=== PATIENT | female | born 2000 | race Caucasian/White ===

== ENCOUNTER 2018-08-16 13:41 | Emergency (ER) | payer OTHER ==
[~2018-08-16] VITALS: Ht 162.6 cm; Wt 90.7 kg
[2018-08-16 13:58] LABS: Source, Urine Clean Catch
[2018-08-16 14:03] LABS: Bilirubin, Urine Neg (Neg); Blood, Urine 1+ (Neg); Glucose Qualitative, Urine Neg (Neg); Ketones, Urine Neg (Neg); Leukocyte Esterase, Urine 2+ (Neg); Nitrite, Urine Neg (Neg); Protein, Urine 1+ (Neg); Urobilinogen, Urine NORM (Normal)
[2018-08-16 14:20] LABS: BASOPHILS ABSOLUTE AUTO 0.02 K/mm3 (0.00-0.23); BASOPHILS PERCENT AUTO 0 % (0-2); EOSINOPHILS ABSOLUTE AUTO 0.02 K/mm3 (0.00-0.68); EOSINOPHILS PERCENT AUTO 0 % (0-6); Hemoglobin 11.5 g/dL (11.5-16.0); IMMATURE GRAN ABSOLUTE AUTO 0.03 K/mm3 (0.00-0.10); IMMATURE GRAN PERCENT AUTO 0 % (0-1); LYMPHOCYTES ABSOLUTE AUTO 1.49 K/mm3 (0.84-5.20); LYMPHOCYTES PERCENT AUTO 18 % (21-46); MONOCYTES ABSOLUTE AUTO 0.76 K/mm3 (0.16-1.47); MONOCYTES PERCENT AUTO 9 % (4-13); Mean Corpuscular HGB 30.4 pg (26.0-34.0); Mean Corpuscular HGB Conc 33.8 g/dL (31.5-36.5); Mean Corpuscular Volume 90 fL (80-100); Mean Platelet Volume 9.8 fL (9.1-12.4); NEUTROPHILS ABSOLUTE AUTO 6.16 K/mm3 (1.96-9.15); NEUTROPHILS PERCENT AUTO 73 % (41-73); Platelet Count 214 K/mm3 (150-400); RDW Coefficient Variation 12.6 % (11.7-14.2); RDW Standard Deviation 41.5 fL (35.1-46.3); Red Blood Cell Count 3.78 M/mm3 (3.80-5.20); White Blood Cell Count 8.48 K/mm3 (4.00-11.30)
[2018-08-16 14:45] LABS: Appearance, Urine Hazy (Clear); Color, Urine Yellow (P-Yellow)
[2018-08-16 14:48] LABS: Bacteria Many /hpf; Squamous Epithelial Cells Many /hpf (Few)
[2018-08-16 14:50] LABS: Alanine Aminotransfer (ALT/SGP 18 U/L (12-78); Albumin, Blood 3.3 g/dL (3.4-5.0); Albumin/Globulin Ratio 0.9 (0.8-1.8); Alk Phos 54 U/L (45-116); Anion Gap 8 mmol/L (6-16); Aspartate Aminotrans (AST/SGOT 15 U/L (12-37); Bilirubin, Total 0.3 mg/dL (0.1-1.0); Blood Urea Nitrogen 5 mg/dL (8-21); Bun/Creatinine Ratio 11.6 (12.0-20.0); CO2, Blood 21 mmol/L (21-32); Calcium, Blood 8.9 mg/dL (8.5-10.1); Chloride, Blood 108 mmol/L (98-108); Creatinine, Blood 0.43 mg/dL (0.40-1.00); Globulin, Blood 3.6 g/dL (2.2-4.0); Glomerular Filtration Rate >60 (60-); Glucose, Blood 83 mg/dL (70-99); Potassium, Blood 3.9 mmol/L (3.5-5.5); Sodium, Blood 137 mmol/L (136-145); Total Protein, Blood 6.9 g/dL (6.4-8.2)
[2018-08-16 14:51] LABS: Red Blood Cells, Urine 0-2 /hpf (0-2); Transitional Epithelial Cells Few /hpf (0-Rare)
[2018-08-16 14:53] LABS: White Blood Cells, Urine 0-2 /hpf (0-5)
[2018-08-16] MEDS ORDERED: ONDA4ODT MM (14:58)
[2018-08-16] MEDS ORDERED: CEFP200 PO (16:04)
== END 2018-08-16 16:13 | disposition home or self-care (01) ==
LOC: ER 13:41
PROVIDERS: Physician Assistant
DX: O23.02 Infections of kidney in pregnancy, second trimester (principal); Z3A.17 17 weeks gestation of pregnancy
CPT/HCPCS: 36415; 76770; 76815; 80053; 81001; 85025; 86900; 86901; 87086; 99284-25; A9270-GY

== ENCOUNTER → 2018-11-24 | Outpatient (CLI) | payer OTHER ==
[~2018-11-24] MED LIST: CEFP200 PO; ONDA4ODT MM
[2018-11-25 10:00] LABS: Candida species (DNA Probe) Positive (NEGATIVE); G. vaginalis (DNA Probe) Negative (NEGATIVE); T. vaginalis (DNA Probe) Negative (NEGATIVE)
== END | disposition home or self-care (01) ==
LOC: LAB 18:15 → LAB SHORT 18:15
PROVIDERS: Physician Assistant
DX: N89.9 Noninflammatory disorder of vagina, unspecified (principal)
CPT/HCPCS: 87070; 87205; 87480; 87510; 87660

== ENCOUNTER → 2020-11-22 | Outpatient (CLI) | payer OTHER | LOC: LAB SHORT 11:45 → LAB 11:45 | PROVIDERS: Obstetrics & Gynecology | DX: Z01.419 Encounter for gynecological examination (general) (routine) without abnormal findings (principal) | CPT/HCPCS: G0123 ==

== ENCOUNTER 2021-06-18 10:01 | Day surgery (SDC) | payer OTHER ==
[~2021-06-18] VITALS: Ht 162.6 cm; Wt 90.4 kg
--- NOTE | 2021-06-18 11:12 | NUR ---
History, Chart, Medications and Allergies reviewed before start of procedure. Patient States Post-Procedure ride home has been arranged. Patient confirms NPO status and agrees with scheduled surgery.
--- NOTE | 2021-06-18 11:40 | NUR ---
ASSUMED CARE AT 1140. REPORT FROM RADHA GABRIEL RN.
--- NOTE | 2021-06-18 16:36 | NUR ---
THIS RN RECENTLY GIVEN REPORT. PT RECENTLY BEEN GIVEN PAIN PILL SHE WAS LESS NAUSEOUS THAN SHE WAS PREVIOUSLY. PT REPORTED TO HAVE NAUSEA MEDICATION. PT GIVEN SALTINE CRACKERS WITH PAIN PILL. PT TOLERATING SIPS OF LIQUID. PT'S MOM HERE. PT ASSISTED WITH ADL'S PRN.
--- NOTE | 2021-06-18 17:10 | NUR ---
Patient up to Ambulate independently. Gait steady. Discharge instructions reviewed with patient. Patient verbalizes understanding. Copy given to patient to take home, WELL FAMILY. Patient States Post-Procedure ride home has been arranged. Discharged via wheelchair to private car for ride home. PT REPORTS PAIN TOLERABLE AND DENIES NAUSEA. PT REPORTED VOIDING RECENTLY.
== END 2021-06-18 17:10 | disposition home or self-care (01) ==
LOC: ORSCMMR 10:01 → ORD 12:00 → ORSCMMR 17:10
PROVIDERS: Obstetrics & Gynecology
PROC: 0UB04ZZ Excision of Right Ovary, Percutaneous Endoscopic Approach (ICD-10-PCS; principal; 2021-06-18 12:00)
DX: D27.0 Benign neoplasm of right ovary (principal); N80.3 Endometriosis of pelvic peritoneum; E66.9 Obesity, unspecified; Z68.34 Body mass index [BMI] 34.0-34.9, adult
CPT/HCPCS: 88305; A9270; J1100; J1170; J1885; J2250; J2405; J2550; J2704; J3010; J7120

== ENCOUNTER → 2021-11-21 | Outpatient (CLI) | payer OTHER ==
[2021-11-21 12:11] LABS: Source, Urine Clean Catch
[2021-11-21 13:12] LABS: Appearance, Urine Clear (Clear); Bilirubin, Urine Neg (Neg); Blood, Urine Neg (Neg); Color, Urine Yellow (P-Yellow); Glucose Qualitative, Urine Neg (Neg); Ketones, Urine 2+ (Neg); Leukocyte Esterase, Urine Neg (Neg); Nitrite, Urine Neg (Neg); Protein, Urine 1+ (Neg); Specific Gravity, Urine 1.015 (1.003-1.022); Urobilinogen, Urine NORM (Normal)
== END | disposition home or self-care (01) ==
LOC: LAB 12:09 → LAB SHORT 12:09
PROVIDERS: Advanced Practice Midwife
DX: R30.9 Painful micturition, unspecified (principal)
CPT/HCPCS: 87086

== ENCOUNTER → 2021-11-29 | Outpatient (CLI) | payer OTHER ==
[2021-11-29 13:38] LABS: Source, Urine Voided
[2021-11-29 15:29] LABS: Mucus Mod (0-Heavy)
[2021-11-29 15:31] LABS: Bacteria Mod /hpf; Squamous Epithelial Cells Few /hpf (Few)
[2021-11-29 15:46] LABS: U Amphetamine Screen Not Detected; U Barbituate Screen Not Detected; U Benzodiazapine Screen Not Detected; U Buprenorphine Screen Not Detected; U Cannabinoids Screen Not Detected; U Cocaine Screen Not Detected; U Methadone Screen Not Detected; U Methamphetamine Screen Not Detected; U Opiates Screen Not Detected; U Oxycodone Screen Not Detected; U Phencyclidine Screen Not Detected; U Propoxyphene Screen Not Detected
== END | disposition home or self-care (01) ==
LOC: LAB SHORT 11:06 → LAB 11:06
PROVIDERS: Obstetrics & Gynecology
DX: Z34.81 Encounter for supervision of other normal pregnancy, first trimester (principal)
CPT/HCPCS: 81015; 87086

== ENCOUNTER 2022-01-02 09:32 | Day surgery (SDC) | payer OTHER ==
[~2022-01-02] VITALS: Ht 162.6 cm; Wt 87.6 kg
--- NOTE | 2022-01-02 10:51 | NUR ---
Ambulatory in [facility] warming gown applied. History, Chart, Medications and Allergies reviewed before start of procedure.Lungs clear T/O to Auscultation. Patient confirms NPO status and agrees with scheduled surgery. Pre-Op teaching done. Pt verbalizes understanding. Patient States Post-Procedure ride home has been arranged.
--- NOTE | 2022-01-02 11:06 | NUR ---
01/02/22 1106 Christi Fink ANTIBIOTIC GIVEN IN PREOP
[2022-01-02 12:18] LABS: Hematocrit 28.7 % (33.0-51.0); Hemoglobin 9.8 g/dL (11.5-16.0); Mean Corpuscular HGB 30.2 pg (26.0-34.0); Mean Corpuscular HGB Conc 34.1 g/dL (31.5-36.5); Mean Corpuscular Volume 88 fL (80-100); Platelet Count 186 K/mm3 (150-400); RDW Coefficient Variation 12.3 % (11.7-14.2); RDW Standard Deviation 40.4 fL (35.1-46.3); Red Blood Cell Count 3.25 M/mm3 (3.80-5.20); White Blood Cell Count 6.08 K/mm3 (4.00-11.30)
--- NOTE | 2022-01-02 12:33 | NUR ---
ARRIVED FROM PACU COMPLAINTS OF NAUSEA NO PAIN. GIVEN RX AT THIS TIME BROUGHT TO BEDSIDE.
--- NOTE | 2022-01-02 13:03 | NUR ---
CALLED WHO RETURNED CALL NEW ORDERS GIVE A THIRD LR AND CYTOTEC 200MCG. PATIENT HAD BEEN STANDING WITH NURSE ATTEMPTING TO PUT AD AND UNDERWEAR ON AND ASSISTED BACK TO BED AFTER PATIENT LOC CHANGED. VSS STABLE BUT WITH LOWER BP WHEN THIS OCCURED.
--- NOTE | 2022-01-02 13:29 | NUR ---
DR MCLEOD HERE AROUND 1320 TO ASSESS PATIENT AND PAD. PATIENT STATES FEELING BETTER AT THIS TIME CALL FROM SURGERY FLOOR DEPARTMENT SECRETARY AND GIVEN ROOM 226 TO PATIENT AND TO CALL NURSE IN 10-15 MINUTES
--- NOTE | 2022-01-02 14:05 | NUR ---
FINAL PAD CHECK AND CHANGED BY VIVEK STEPHENS AND REPORT GIVEN TO ANSHUL DOYLETILE DESIGNER FLOOR ON PHONE AND IN PERSON WHEN TWO RNS TOOK PATIENT OT FLOOR AND DID A FULLA SSIST TO NEW BED.
--- NOTE | 2022-01-02 14:14 | NUR ---
POST OP: REPORT RECEIVED FROM BRA[place], TAX COLLECTOR. PT TO UNIT AT ABOUT 1410. PT IS A/O, VSS. SMALL AMT OF VAGINAL BLEED, FLUIDS RUNNING. PT REPORTS "SLIGHTLY DIZZY". ORIENTED TO ROOM, CALL LIGHT IN REACH. FAMILY AT BEDSIDE.
[2022-01-02 16:03] LABS: BASOPHILS ABSOLUTE AUTO 0.02 K/mm3 (0.00-0.23); BASOPHILS PERCENT AUTO 0 % (0-2); EOSINOPHILS PERCENT AUTO 0 % (0-6); Hematocrit 26.6 % (33.0-51.0); Hemoglobin 8.9 g/dL (11.5-16.0); IMMATURE GRAN ABSOLUTE AUTO 0.07 K/mm3 (0.00-0.10); IMMATURE GRAN PERCENT AUTO 1 % (0-1); LYMPHOCYTES ABSOLUTE AUTO 0.61 K/mm3 (0.84-5.20); LYMPHOCYTES PERCENT AUTO 5 % (21-46); MONOCYTES ABSOLUTE AUTO 0.14 K/mm3 (0.16-1.47); MONOCYTES PERCENT AUTO 1 % (4-13); Mean Corpuscular HGB 29.5 pg (26.0-34.0); Mean Corpuscular HGB Conc 33.5 g/dL (31.5-36.5); Mean Corpuscular Volume 88 fL (80-100); Mean Platelet Volume 10.3 fL (9.1-12.4); NEUTROPHILS ABSOLUTE AUTO 11.88 K/mm3 (1.96-9.15); NEUTROPHILS PERCENT AUTO 93 % (41-73); Platelet Count 203 K/mm3 (150-400); RDW Coefficient Variation 12.4 % (11.7-14.2); RDW Standard Deviation 39.5 fL (35.1-46.3); Red Blood Cell Count 3.02 M/mm3 (3.80-5.20); White Blood Cell Count 12.72 K/mm3 (4.00-11.30)
--- NOTE | 2022-01-02 19:35 | NUR ---
SUMMARY: PT IS POD0 D&C. A/O, VSS. PT VAGINAL BLEEDING HAS DECREASED SINCE ADMISSION. PT HAS BEEN ABLE TO VOID, IS EATING AND DRINKING. SOME NAUSEA AND NO EMESIS. PT PAIN SEEMS TO BE WELL MANAGED WITH TYLENOL, PT REPORTS MILD CRAMPING. WHEN PT STANDS TO USE RESTROOM, SHE CONTINUES TO REPORT MILD DIZZINESS AND REPORTS SOB AND THAT HER HEART IS BOUNDING. PT LAYS BACK DOWN AND FEELS BETTER, VSS. DR. MCLEOD MADE AWARE OF THIS AND A 500ML OF NS FLUID BOLUS GIVEN. PT STILL COMPLAINING OF DIZZINESS 1 HR AFTER BOLUS WHEN UP TO BATHROOM. DR. MCLEOD CALLED AGAIN, NO NEW ORDERS AT THIS TIME. NOC VIVEK HALE IS AWARE. BEDSIDE REPORT COMPLETED.
--- NOTE | 2022-01-02 20:29 | NUR ---
PT C/O TINGLING TO CHEST AND FINGERS.PT RESTING IN BED.VS STABLE WITH LITTLE CHANGE OTHER THAN HEART RATE TRENDING UP TO 104 FROM 80'S.DENIES VISION CHANGES.LIGHT VAG FLOW.I CALLED DR Enid MCLEOD TO ADVISE OF ABOVE WITH NO NEW ORDERS RECEIVED.DR LUONG TO REASSURE PT MOST LIKLEY SECONDARY TO SURGICAL BLOOD LOSS. DR LUONG SHE WILL DECIDE REGARDING ANY FUTHER BLOOD DRAWS AND WILL PUT ORDERS IN IF SHE WANTS ANY FURTHER BLOOD DRAWS.
[2022-01-03 04:53] LABS: Hematocrit 21.2 % (33.0-51.0); Hemoglobin 7.2 g/dL (11.5-16.0); Mean Corpuscular HGB 29.9 pg (26.0-34.0); Mean Corpuscular Volume 88 fL (80-100); Mean Platelet Volume 10.3 fL (9.1-12.4); Platelet Count 182 K/mm3 (150-400); RDW Coefficient Variation 12.3 % (11.7-14.2); RDW Standard Deviation 39.7 fL (35.1-46.3); Red Blood Cell Count 2.41 M/mm3 (3.80-5.20); White Blood Cell Count 8.25 K/mm3 (4.00-11.30)
--- NOTE | 2022-01-03 05:08 | NUR ---
PT UP IN ROOM WITH THIS AM.DIZZYNESS MOSTLY RESOLVED,BUT REPORTS OCC DIZZYNESS STILL.LIGHT VAG DRNG.PAIN MEDS HAVE BEEN EFFECTIVE.
--- NOTE | 2022-01-03 05:39 | NUR ---
SUMMARY PHONE CALL TO DR Enid MCLEOD TO DISCUSS H/H 7.2.2 STATED SHE DOES NOT EXPECT PT TO NEED TRANSFUSION. STATED SHE PUT IN ORDER FOR IV IRON THIS AM. PLANS TO SEE PT AFTER AM MEETING SHE HAS SCHEDULED.
--- NOTE | 2022-01-03 09:00 | NUR ---
IRON TRANFUSION PT DECLINED IRON TRANSFUSION AND VERBALIZED THAT SHE WANTED TO GO HOME. DR. MCLEOD NOTIFIED AND STATED OK FOR PT TO DISCHARGE HOME.
[2022-01-03] MEDS ORDERED: Acetaminophen650 M1 PO ×2 (09:34)
[2022-01-03] MEDS ORDERED: OXAYDO5 M2 PO ×2 (09:35)
[2022-01-03] MEDS ORDERED: IBUP800 PO ×2 (09:36)
--- NOTE | 2022-01-03 10:00 | NUR ---
PT CONCERNS ABOUT GOING HOME PT AND HER EXPRESSED CONCERNS ABOUT PT DISCHARGING HOME. PT REPORTED THAT SHE HAD EXTREME DIZZINESS UPON STANDING AND TRYING TO GET DRESSED TO GO HOME. SHE ALSO REPORTED SHE FELT LIKE SHE WAS GOING TO "PASS OUT." ORTHOSTATIC VS CHECKED LYING BP 118/62 HR 104 SITTING BP 116/59 HR 105 STANDING BP 116/[address] MCLEOD NOTIFIED AND SHE RECOMMENDED GIVING IV IRON ORDERED AND REASSESSING PT. PT EDUCATED OF THIS DECISION, SHE AGREED TO AN IV START AND IV IRON TRANSFUSION.
--- NOTE | 2022-01-03 13:44 | NUR ---
IRON TRANSFUSION COMPLETED. ORTHOSTATIC VS COMPLETED AFTER IRON WAS GIVEN. UPON STANDING, PT BECAME SOB AND AND BP DROPPED TO 88/45 WITH HR OF 144. DR. MCLEOD NOTIFIED. PLAN TO ADMINISTER 1 UNIT PRBC.
--- NOTE | 2022-01-03 16:35 | NUR ---
PAIN AT IV SITE PT REPORTED PAIN/TINGLING AT HER IV SITE, AFTER THE BLOOD TRANSFUSION WAS STARTED. HECTOR SALEEM RN AT BEDSIDE DURING THE FIRST 15 MINUTES OF TRANSFUSION STOPPED TRANSFUSION AND NOTIFIED THIS RN. ATTEMPTED TO FLUSH IV AND START BLOOD AT A LOWER RATE WITHOUT ANY IMPROVEMENT IN DISCOMFORT. PT HAD NO OTHER COMPLAINT, HER ARM AND IV SITE, WNL AND WITHOUT REDNESS, VSS. PT WAS ANXIOUS PRIOR TO START OF TRANSFUSION, SHE VERBALIZED THAT SHE WAS ANXIOUS. DR. MCLEOD NOTIFIED OF PT'S SYMPTOMS. PER DR. MCLEOD OK TO CONTINUE TRANSFUSION SHE DID NOT BELIEVE THIS WAS A REACTION TO THE BLOOD TRANSFUSION BUT POSSIBLY THE LOCATION OF THE IV. PT'S IV LOCATED IN THE R WRIST, PT HAD EXPRESSED MILD DISCOMFORT WITH IV USE PRIOR TO BLOOD PRODUCT ADMINISTRATION. BENADRYL AND TYLENOL GIVEN PRIOR TO CONTINUING TRANSFUSION.
--- NOTE | 2022-01-03 20:08 | NUR ---
phone call to dr kamaljit mendez to advise pts bp stable,heart rate inclines from 100-102 up to 119. pt denies dizzyness.reports feeling well. dr mendez confirmed ok for discharge.
--- NOTE | 2022-01-03 20:09 | NUR ---
SHIFT SUMMARY BLOOD TRANSFUSION ENDED AT 1924. PT TOLERATED THE REMAINEDER OF THE TRANSFUSION WELL. SHE CONTINUED TO HAVE DISCOMFORT AT THE IV SITE. SHE DID REPORT THAT SHE NO LONGER FELT DIZZY OR LIGHTHEADED AFTER TRANSFUSION WAS COMPLETED. PLAN TO CONTINUE WITH DISCHARGE PER DR. MCLEOD LONG ORTHOSTATIC VS ARE STABLE AND PT FEELS WELL. PT WAS ABLE TO GET OOB AND WALK IN ROOM WITHOUT DIZZINESS TOWARD THE END OF THE TRANSFUSION. SHE REPORTS SHE FEELS BETTER. REPORT GIVEN TO MILAGROS KENNY RN AT BEDSIDE.
--- NOTE | 2022-01-03 20:35 | NUR ---
IV DCD WITH CATH INTACT.PT DISCHARGED TO HOME VIA W/C TO CAR WITH .
== END 2022-01-03 20:35 | disposition home or self-care (01) ==
LOC: ORSCMMR 09:32 → ORD 11:00 → SURS 14:00 → ORSCMMR 01-03 20:35
PROVIDERS: Obstetrics & Gynecology
PROC: 10A07Z6 Abortion of Products of Conception, Vacuum, Via Natural or Artificial Opening (ICD-10-PCS; principal; 2022-01-02 11:00)
DX: O02.1 Missed abortion (principal)
CPT/HCPCS: 36415; 36430; 85025; 85027; 86850; 86900; 86901; 86923; 88305; A9270; J1100; J1200; J1885; J2210; J2250; J2270; J2405; J2704; J2916; J3010; J7050; J7120; P9016

== ENCOUNTER 2022-01-05 18:31 | Emergency (ER) | payer OTHER ==
[~2022-01-05] VITALS: Ht 162.6 cm; Wt 86.2 kg
[~2022-01-05 18:31] MED LIST changes: +Acetaminophen650 M1 PO; +IBUP800 PO; +OXAYDO5 M2 PO
[2022-01-05 19:24] LABS: Albumin, Blood 3.3 g/dL (3.4-5.0); Albumin/Globulin Ratio 1.2 (0.8-1.8); Bilirubin, Total 0.1 mg/dL (0.1-1.0); Bun/Creatinine Ratio 14.3 (12.0-20.0); Calcium, Blood 8.8 mg/dL (8.5-10.1); Creatinine, Blood 0.63 mg/dL (0.40-1.00); Globulin, Blood 2.7 g/dL (2.2-4.0); Potassium, Blood 3.5 mmol/L (3.5-5.5)
[2022-01-05 19:33] LABS: BASOPHILS ABSOLUTE AUTO 0.03 K/mm3 (0.00-0.23); BASOPHILS PERCENT AUTO 0 % (0-2); EOSINOPHILS ABSOLUTE AUTO 0.09 K/mm3 (0.00-0.68); EOSINOPHILS PERCENT AUTO 1 % (0-6); Hematocrit 25.6 % (33.0-51.0); Hemoglobin 8.6 g/dL (11.5-16.0); IMMATURE GRAN ABSOLUTE AUTO 0.05 K/mm3 (0.00-0.10); IMMATURE GRAN PERCENT AUTO 1 % (0-1); LYMPHOCYTES ABSOLUTE AUTO 2.23 K/mm3 (0.84-5.20); LYMPHOCYTES PERCENT AUTO 28 % (21-46); MONOCYTES ABSOLUTE AUTO 0.55 K/mm3 (0.16-1.47); MONOCYTES PERCENT AUTO 7 % (4-13); Mean Corpuscular HGB 30.1 pg (26.0-34.0); Mean Corpuscular HGB Conc 33.6 g/dL (31.5-36.5); Mean Corpuscular Volume 90 fL (80-100); Mean Platelet Volume 10.2 fL (9.1-12.4); NEUTROPHILS ABSOLUTE AUTO 4.93 K/mm3 (1.96-9.15); NEUTROPHILS PERCENT AUTO 63 % (41-73); Platelet Count 219 K/mm3 (150-400); RDW Coefficient Variation 13.2 % (11.7-14.2); RDW Standard Deviation 43.4 fL (35.1-46.3); Red Blood Cell Count 2.86 M/mm3 (3.80-5.20); White Blood Cell Count 7.88 K/mm3 (4.00-11.30)
[2022-01-05 19:46] LABS: Source, Urine Clean Catch
[2022-01-05] MEDS ORDERED: ONDA4ODT MM (19:46)
[2022-01-05 19:57] LABS: Appearance, Urine Hazy (Clear); Bilirubin, Urine Neg (Neg); Blood, Urine 5+ (Neg); Color, Urine Yellow (P-Yellow); Glucose Qualitative, Urine Neg (Neg); Ketones, Urine Neg (Neg); Leukocyte Esterase, Urine 1+ (Neg); Nitrite, Urine Neg (Neg); Protein, Urine 1+ (Neg); Urobilinogen, Urine 1+ (Normal)
[2022-01-05 20:11] LABS: Mucus Mod (0-Heavy); Squamous Epithelial Cells Many /hpf (Few)
[2022-01-05 20:13] LABS: Calcium Oxalate Crystals Few /hpf; Red Blood Cells, Urine 25-50 /hpf (0-2)
[2022-01-05 20:14] LABS: Amorphous Light (0-Heavy); Bacteria Mod /hpf
== END 2022-01-05 23:02 | disposition home or self-care (01) ==
LOC: ER 18:31
PROVIDERS: Emergency Medicine
DX: R42 Dizziness and giddiness (principal); E86.0 Dehydration; D64.9 Anemia, unspecified
CPT/HCPCS: 36415; 76856; 80053; 81001; 85025; 87086; 96360; 99284-25; J7030

== ENCOUNTER 2022-05-20 07:59 | Day surgery (SDC) | payer OTHER ==
[~2022-05-20] VITALS: Ht 162.6 cm; Wt 97.7 kg
[~2022-05-20 07:59] MED LIST changes: +FERROUS SULFAT325 M3 PO; +IBU800 M1 PO
[2022-05-20] MEDS ORDERED: IBUP400 PO (08:41)
--- NOTE | 2022-05-20 09:50 | NUR ---
PRE SURGERY NOTE Ambulatory in Day Surgery Surgical site prepped with 2% Chlorhexidine cloth wipe. History, Chart, Medications and Allergies reviewed before start of procedure.Lungs clear T/O to Auscultation. Patient confirms NPO status and agrees with scheduled surgery. Pre-Op teaching done. Pt verbalizes understanding. Patient States Post-Procedure ride home has been arranged.
--- NOTE | 2022-05-20 15:46 | NUR ---
Patient up to Ambulate independently. Gait steady. ABLE TO URINATE. PATIENT WITH SMALL SCRAT LOOKING SITE ON ADBOMEN AT TOP OF INSISIONS. LOOKS LIKE POSSIBLE FROM DRAPE TAPE. INSISIONS GOOD. VAGINAL BLEEDING WNL. SPOKE WITH DR. ARVIZU. PER MD SHE WILL CALL IN NAUSEA SCRIPT FOR PATIENT FOR HOME USE. Discharge instructions reviewed with patient. Patient verbalizes understanding. Copy given to patient to take home. Discharged via wheelchair to private car for ride home.
== END 2022-05-20 22:50 | disposition home or self-care (01) ==
LOC: ORSCMMR 07:59 → ORD 09:30 → ORSCMMR 09:30
PROVIDERS: Obstetrics & Gynecology
PROC: 0UBF4ZX Excision of Cul-de-sac, Percutaneous Endoscopic Approach, Diagnostic (ICD-10-PCS; principal; 2022-05-20 09:30)
PROC: 8E0W4CZ Robotic Assisted Procedure of Trunk Region, Percutaneous Endoscopic Approach (ICD-10-PCS; principal; 2022-05-20 09:30)
PROC: 0UB04ZZ Excision of Right Ovary, Percutaneous Endoscopic Approach (ICD-10-PCS; principal; 2022-05-20 09:30)
DX: N80.321 Superficial endometriosis of the posterior cul-de-sac (principal); D27.0 Benign neoplasm of right ovary; K21.9 Gastro-esophageal reflux disease without esophagitis; E66.9 Obesity, unspecified; Z68.37 Body mass index [BMI] 37.0-37.9, adult
CPT/HCPCS: 58662; S2900; 88305; A9270; J1100; J1170; J2250; J2405; J2550; J2704; J2795; J3010; J7120

== ENCOUNTER → 2022-05-23 | Outpatient (CLI) | payer OTHER ==
[~2022-05-23] MED LIST changes: +IBUP400 PO
[2022-05-23 15:57] LABS: BASOPHILS ABSOLUTE AUTO 0.03 K/mm3 (0.00-0.23); BASOPHILS PERCENT AUTO 0 % (0-2); EOSINOPHILS ABSOLUTE AUTO 0.13 K/mm3 (0.00-0.68); EOSINOPHILS PERCENT AUTO 2 % (0-6); Hematocrit 33.9 % (33.0-51.0); Hemoglobin 11.1 g/dL (11.5-16.0); IMMATURE GRAN ABSOLUTE AUTO 0.02 K/mm3 (0.00-0.10); IMMATURE GRAN PERCENT AUTO 0 % (0-1); LYMPHOCYTES ABSOLUTE AUTO 1.83 K/mm3 (0.84-5.20); LYMPHOCYTES PERCENT AUTO 25 % (21-46); MONOCYTES ABSOLUTE AUTO 0.52 K/mm3 (0.16-1.47); MONOCYTES PERCENT AUTO 7 % (4-13); Mean Corpuscular HGB 26.9 pg (26.0-34.0); Mean Corpuscular HGB Conc 32.7 g/dL (31.5-36.5); Mean Corpuscular Volume 82 fL (80-100); Mean Platelet Volume 9.8 fL (9.1-12.4); NEUTROPHILS ABSOLUTE AUTO 4.91 K/mm3 (1.96-9.15); NEUTROPHILS PERCENT AUTO 66 % (41-73); Platelet Count 334 K/mm3 (150-400); RDW Coefficient Variation 14.6 % (11.7-14.2); Red Blood Cell Count 4.13 M/mm3 (3.80-5.20); White Blood Cell Count 7.44 K/mm3 (4.00-11.30)
[2022-05-23 16:07] LABS: Albumin, Blood 3.7 g/dL (3.4-5.0); Albumin/Globulin Ratio 1.1 (0.8-1.8); Bilirubin, Total 0.3 mg/dL (0.1-1.0); Bun/Creatinine Ratio 15.7 (12.0-20.0); Calcium, Blood 9.2 mg/dL (8.5-10.1); Creatinine, Blood 0.7 mg/dL (0.40-1.00); Globulin, Blood 3.4 g/dL (2.2-4.0); Potassium, Blood 4.1 mmol/L (3.5-5.5); Total Protein, Blood 7.1 g/dL (6.4-8.2)
== END | disposition home or self-care (01) ==
LOC: LAB SHORT 15:51
PROVIDERS: Chiropractor
DX: R07.89 Other chest pain (principal)
CPT/HCPCS: 80053; 85025; 85379

== ENCOUNTER → 2022-06-03 | Outpatient (CLI) | payer OTHER | END | disposition home or self-care (01) | LOC: LAB 15:48 → LAB SHORT 15:48 | DX: R30.0 Dysuria (principal) | CPT/HCPCS: 87086 ==

== ENCOUNTER → 2022-06-26 | Outpatient (CLI) | payer OTHER ==
[2022-06-26 08:10] LABS: BASOPHILS ABSOLUTE AUTO 0.05 K/mm3 (0.00-0.23); BASOPHILS PERCENT AUTO 1 % (0-2); EOSINOPHILS PERCENT AUTO 2 % (0-6); Hematocrit 36.8 % (33.0-51.0); IMMATURE GRAN ABSOLUTE AUTO 0.01 K/mm3 (0.00-0.10); IMMATURE GRAN PERCENT AUTO 0 % (0-1); LYMPHOCYTES ABSOLUTE AUTO 1.92 K/mm3 (0.84-5.20); LYMPHOCYTES PERCENT AUTO 29 % (21-46); MONOCYTES ABSOLUTE AUTO 0.68 K/mm3 (0.16-1.47); MONOCYTES PERCENT AUTO 10 % (4-13); Mean Corpuscular HGB Conc 32.6 g/dL (31.5-36.5); Mean Corpuscular Volume 83 fL (80-100); Mean Platelet Volume 9.8 fL (9.1-12.4); NEUTROPHILS ABSOLUTE AUTO 3.91 K/mm3 (1.96-9.15); NEUTROPHILS PERCENT AUTO 59 % (41-73); Platelet Count 323 K/mm3 (150-400); RDW Coefficient Variation 13.7 % (11.7-14.2); RDW Standard Deviation 41.3 fL (35.1-46.3); Red Blood Cell Count 4.44 M/mm3 (3.80-5.20); White Blood Cell Count 6.67 K/mm3 (4.00-11.30)
[2022-06-26 08:32] LABS: Albumin, Blood 3.8 g/dL (3.4-5.0); Albumin/Globulin Ratio 1.1 (0.8-1.8); Bilirubin, Total 0.4 mg/dL (0.1-1.0); Calcium, Blood 8.9 mg/dL (8.5-10.1); Creatinine, Blood 0.75 mg/dL (0.40-1.00); Globulin, Blood 3.4 g/dL (2.2-4.0); Potassium, Blood 3.8 mmol/L (3.5-5.5); Total Protein, Blood 7.2 g/dL (6.4-8.2)
== END | disposition home or self-care (01) ==
LOC: LAB SHORT 08:05 → LAB 08:05
PROVIDERS: Physician Assistant
DX: R10.32 Left lower quadrant pain (principal)
CPT/HCPCS: 80053; 85025

== ENCOUNTER → 2022-10-11 | Outpatient (CLI) | payer OTHER | END | disposition home or self-care (01) | LOC: LAB 09:45 → LAB SHORT 09:45 | DX: J02.9 Acute pharyngitis, unspecified (principal) | CPT/HCPCS: 87081 ==

== ENCOUNTER → 2023-05-02 | Outpatient (CLI) | payer OTHER ==
[2023-05-02 19:00] LABS: BASOPHILS ABSOLUTE AUTO 0.03 K/mm3 (0.00-0.23); BASOPHILS PERCENT AUTO 0 % (0-2); EOSINOPHILS ABSOLUTE AUTO 0.06 K/mm3 (0.00-0.68); EOSINOPHILS PERCENT AUTO 1 % (0-6); Hematocrit 33.9 % (33.0-51.0); Hemoglobin 11.5 g/dL (11.5-16.0); IMMATURE GRAN ABSOLUTE AUTO 0.12 K/mm3 (0.00-0.10); IMMATURE GRAN PERCENT AUTO 2 % (0-1); LYMPHOCYTES ABSOLUTE AUTO 1.12 K/mm3 (0.84-5.20); LYMPHOCYTES PERCENT AUTO 15 % (21-46); MONOCYTES ABSOLUTE AUTO 0.69 K/mm3 (0.16-1.47); MONOCYTES PERCENT AUTO 9 % (4-13); Mean Corpuscular HGB 30.7 pg (26.0-34.0); Mean Corpuscular HGB Conc 33.9 g/dL (31.5-36.5); Mean Corpuscular Volume 91 fL (80-100); Mean Platelet Volume 9.4 fL (9.1-12.4); NEUTROPHILS ABSOLUTE AUTO 5.55 K/mm3 (1.96-9.15); NEUTROPHILS PERCENT AUTO 73 % (41-73); Platelet Count 191 K/mm3 (150-400); RDW Coefficient Variation 14.1 % (11.7-14.2); RDW Standard Deviation 46.9 fL (35.1-46.3); Red Blood Cell Count 3.74 M/mm3 (3.80-5.20); White Blood Cell Count 7.57 K/mm3 (4.00-11.30)
== END ==
LOC: LAB SHORT 18:11 → LAB 18:11
PROVIDERS: Obstetrics & Gynecology
DX: O09.891 Supervision of other high risk pregnancies, first trimester (principal)
CPT/HCPCS: 82728; 82950; 83540; 83550; 85025

== ENCOUNTER → 2023-06-25 | Outpatient (CLI) | payer OTHER ==
[~2023-06-25] MED LIST changes: +OMEP20ER PO; +PRENATAL TABLE1 EAC2 PO
[2023-06-25 20:32] LABS: Protein, Urine Random 30.7 mg/dL (0.0-11.9); Protein/Creat Ratio, Ur Random 0.2
== END | disposition home or self-care (01) ==
LOC: LAB SHORT 17:03 → LAB 17:03
PROVIDERS: Obstetrics & Gynecology
DX: R03.0 Elevated blood-pressure reading, without diagnosis of hypertension (principal)
CPT/HCPCS: 82570; 84156

== ENCOUNTER 2023-07-18 07:01 | Inpatient (IN) | payer OTHER ==
[~2023-07-18] VITALS: Ht 162.6 cm; Wt 102.3 kg
[2023-07-18] VITALS (13 sets, daily range): BP systolic 101–130; BP diastolic 56–89
[2023-07-18] MEDS ORDERED: Ampicillin Sod 2,000 MG in NS 100 ML IV STA (08:07)
[2023-07-18] MEDS ORDERED: Oxytocin 10 Unit / ML Vial IM SCH (08:10)
[2023-07-18] MEDS ORDERED: Bupivacaine 0.5% HCl 5 MG/ML 30MLVIAL XX SCH (08:10)
[2023-07-18] MEDS ORDERED: Methylergonovine Maleate 0.2MG / ML 1ML Amp IM SCH (08:10)
[2023-07-18] MEDS ORDERED: Lidocaine HCl 1% 30 ML SDV XX SCH (08:10)
[2023-07-18] MEDS ORDERED: FentaNYL 2mcg/ml-Bup 0.1% Epd 250 ML EPI PRN (08:10)
[2023-07-18] MEDS ORDERED: Lactated Ringer's 1,000 ML IV PRN (08:10)
[2023-07-18] MEDS ORDERED: Bupivacaine HCl 2.5 MG/ML 10ML P/F Injection XX SCH (08:10)
[2023-07-18] MEDS ORDERED: Lactated Ringer's 1,000 ML IV SCH ×3 (08:10→17:00)
[2023-07-18] MEDS ORDERED: Castor Oil 59.146 ML BTL TOP SCH (08:10)
[2023-07-18] MEDS ORDERED: LR Oxytocin 20 Units 1,000 ML IV SCH ×3 (08:10→17:00)
[2023-07-18] MEDS ORDERED: Misoprostol 200 MCG Tab PR SCH (08:10)
[2023-07-18] MEDS ORDERED: ePHEDrine Sulfate 50 MG/ML 1ML Injection XX PRN (08:10)
[2023-07-18 08:38] LABS: BASOPHILS ABSOLUTE AUTO 0.02 K/mm3 (0.00-0.23); BASOPHILS PERCENT AUTO 0 % (0-2); EOSINOPHILS ABSOLUTE AUTO 0.01 K/mm3 (0.00-0.68); EOSINOPHILS PERCENT AUTO 0 % (0-6); Hematocrit 33.7 % (33.0-51.0); IMMATURE GRAN ABSOLUTE AUTO 0.08 K/mm3 (0.00-0.10); IMMATURE GRAN PERCENT AUTO 1 % (0-1); LYMPHOCYTES ABSOLUTE AUTO 1.44 K/mm3 (0.84-5.20); LYMPHOCYTES PERCENT AUTO 21 % (21-46); MONOCYTES ABSOLUTE AUTO 0.58 K/mm3 (0.16-1.47); MONOCYTES PERCENT AUTO 8 % (4-13); Mean Corpuscular HGB Conc 35.6 g/dL (31.5-36.5); Mean Corpuscular Volume 90 fL (80-100); Mean Platelet Volume 10.5 fL (9.1-12.4); NEUTROPHILS ABSOLUTE AUTO 4.77 K/mm3 (1.96-9.15); NEUTROPHILS PERCENT AUTO 69 % (41-73); Platelet Count 133 K/mm3 (150-400); RDW Coefficient Variation 12.6 % (11.7-14.2); RDW Standard Deviation 40.8 fL (35.1-46.3); Red Blood Cell Count 3.75 M/mm3 (3.80-5.20)
[2023-07-18 10:29] LABS: Albumin, Blood 2.9 g/dL (3.4-5.0); Albumin/Globulin Ratio 0.9 (0.8-1.8); Bilirubin, Total 0.4 mg/dL (0.1-1.0); Bun/Creatinine Ratio 12.5 (12.0-20.0); Creatinine, Blood 0.56 mg/dL (0.40-1.00); Globulin, Blood 3.3 g/dL (2.2-4.0); Potassium, Blood 3.5 mmol/L (3.5-5.5); Total Protein, Blood 6.2 g/dL (6.4-8.2)
[2023-07-18] MEDS ORDERED: Ampicillin Sod 1,000 MG in NS 100 ML IV SCH (12:30)
[2023-07-18] MEDS ORDERED: FentaNYL Citrate 50 MCG/ML 2 ML Injection ONE ×3 (13:36→15:47)
[2023-07-18] MEDS ORDERED: Bupivacaine 0.5% HCl 5 MG/ML 30MLVIAL EPI ONE (13:41)
[2023-07-18] MEDS ORDERED: Misoprostol 200 MCG Tab PO ONE (13:41)
[2023-07-18] MEDS ORDERED: FentaNYL Citrate 50 MCG/ML 2 ML Injection IV PRN (13:45)
[2023-07-18] MEDS ORDERED: Ondansetron HCl 2 MG / ML 2ML Vial IV PRN (13:45)
[2023-07-18] MEDS ORDERED: Calcium Carbonate 500 MG Tab Chew PO PRN (13:45)
[2023-07-18] MEDS ORDERED: Ketorolac Tromethamine 30mg Vial IV ONE ×2 (15:35→17:00)
[2023-07-18] MEDS ORDERED: Ketorolac Tromethamine 30mg Vial IV PRN (17:00)
[2023-07-18] MEDS ORDERED: Carboprost Tromethamine 250 MCG/ML 1ML Amp IM PRN (17:00)
[2023-07-18] MEDS ORDERED: Benzocaine Topical Anesthetic Spray 60GM TOP PRN (17:00)
[2023-07-18] MEDS ORDERED: Docusate Sodium 100 MG Cap PO PRN (17:00)
[2023-07-18] MEDS ORDERED: Ibuprofen 400 MG Tab PO PRN (17:00)
[2023-07-18] MEDS ORDERED: Acetaminophen 325 MG TABLET PO PRN (17:05)
[2023-07-18] MEDS ORDERED: Misoprostol 200 MCG Tab PR PRN (17:05)
[2023-07-18] MEDS ORDERED: Witch Hazel/Glycerin PADS TOP PRN (17:05)
[2023-07-18] MEDS ORDERED: Methylergonovine Maleate 0.2MG / ML 1ML Amp IM PRN (17:05)
[2023-07-18] MEDS ORDERED: Acetaminophen 500 MG Tab PO PRN (18:30)
[2023-07-18] MEDS ORDERED: OxyCODONE HCL 5 MG TAB PO PRN (18:30)
[2023-07-19 03:09] VITALS: BP 118/67
[2023-07-19 05:27] VITALS: BP 105/66
[2023-07-19 08:18] VITALS: BP 111/80
[2023-07-19] MEDS ORDERED: Prenatal Vit/FE Fumarate/FA 1 Tab PO SCH (09:00)
[2023-07-19 09:55] LABS: BASOPHILS ABSOLUTE AUTO 0.02 K/mm3 (0.00-0.23); BASOPHILS PERCENT AUTO 0 % (0-2); EOSINOPHILS ABSOLUTE AUTO 0.02 K/mm3 (0.00-0.68); EOSINOPHILS PERCENT AUTO 0 % (0-6); Hematocrit 22.9 % (33.0-51.0); Hemoglobin 7.9 g/dL (11.5-16.0); IMMATURE GRAN ABSOLUTE AUTO 0.08 K/mm3 (0.00-0.10); IMMATURE GRAN PERCENT AUTO 1 % (0-1); LYMPHOCYTES ABSOLUTE AUTO 1.28 K/mm3 (0.84-5.20); LYMPHOCYTES PERCENT AUTO 17 % (21-46); MONOCYTES ABSOLUTE AUTO 0.47 K/mm3 (0.16-1.47); MONOCYTES PERCENT AUTO 6 % (4-13); Mean Corpuscular HGB 31.9 pg (26.0-34.0); Mean Corpuscular HGB Conc 34.5 g/dL (31.5-36.5); Mean Corpuscular Volume 92 fL (80-100); Mean Platelet Volume 9.8 fL (9.1-12.4); NEUTROPHILS PERCENT AUTO 76 % (41-73); Platelet Count 115 K/mm3 (150-400); RDW Coefficient Variation 12.8 % (11.7-14.2); RDW Standard Deviation 42.1 fL (35.1-46.3); Red Blood Cell Count 2.48 M/mm3 (3.80-5.20); White Blood Cell Count 7.77 K/mm3 (4.00-11.30)
[2023-07-19] MEDS ORDERED: Sod Ferric Gluc Complx/Sucrose 125 MG in NS 100 ML IV SCH (10:54)
[2023-07-19 10:57] VITALS: BP 117/67
[2023-07-19] MEDS ORDERED: FentaNYL Citrate 50 MCG/ML 2 ML Injection IV ONE (11:55)
[2023-07-19] MEDS ORDERED: FentaNYL Citrate 50 MCG/ML 2 ML Injection IV SCH (12:00)
--- NOTE | 2023-07-19 15:45 | NUR ---
DISCHARGE TEACHING COMPLETED, PT VERBALIZES UNDERSTANDING AND HAS NO QUESTIONS OR CONCERNS
== END 2023-07-19 16:50 | disposition home or self-care (01) | DRG 806 ==
LOC: OBS 07:01 → BC 07:02 → OBS 07:10 → BC 07:16
PROVIDERS: Advanced Practice Midwife; ADMIT Obstetrics & Gynecology
PROC: 10E0XZZ Delivery of Products of Conception, External Approach (ICD-10-PCS; principal; 2023-07-18)
PROC: 0KQM0ZZ Repair Perineum Muscle, Open Approach (ICD-10-PCS; 2023-07-18)
PROC: 10907ZC Drainage of Amniotic Fluid, Therapeutic from Products of Conception, Via Natural or Artificial Opening (ICD-10-PCS; 2023-07-18)
DX: O34.211 Maternal care for low transverse scar from previous cesarean delivery (principal); O99.12 Other diseases of the blood and blood-forming organs and certain disorders involving the immune mechanism complicating childbirth; Z37.2 Twins, both liveborn; Z3A.38 38 weeks gestation of pregnancy; D69.6 Thrombocytopenia, unspecified; O99.02 Anemia complicating childbirth; D50.9 Iron deficiency anemia, unspecified; O99.824 Streptococcus B carrier state complicating childbirth; O30.043 Twin pregnancy, dichorionic/diamniotic, third trimester; O70.1 Second degree perineal laceration during delivery
CPT/HCPCS: 36415; 59025; 80053; 85025; 86850; 86900; 86901; 86923; A9270; J0290; J1885; J2210; J2405; J2590; J2916; J3010; J7120

== ENCOUNTER → 2023-07-25 | Outpatient (CLI) | payer OTHER | END | disposition home or self-care (01) | LOC: LAB EV 18:04 → LAB SHORT 18:04 | DX: N89.8 Other specified noninflammatory disorders of vagina (principal) ==

== ENCOUNTER → 2024-10-08 | Outpatient (CLI) | payer OTHER ==
[2024-10-10 10:05] LABS: C. TRACHOMATIS BY TMA,THINPREP Negative (Negative); N. GONORRHOEAE BY TMA,THINPREP Negative (Negative)
== END ==
LOC: LAB SHORT 14:32 → LAB 14:32
PROVIDERS: Family Medicine
DX: Z01.419 Encounter for gynecological examination (general) (routine) without abnormal findings (principal); Z11.3 Encounter for screening for infections with a predominantly sexual mode of transmission
CPT/HCPCS: 87491; 87591; G0123